=== PATIENT | male | born 1995 | race Caucasian/White ===

== ENCOUNTER 2021-11-19 15:16 | Emergency (ER) | payer OTHER ==
[~2021-11-19] VITALS: Ht 177.8 cm; Wt 77.1 kg
[2021-11-19 16:14] VITALS: BP 108/64
[2021-11-19] MEDS ORDERED: ACET-8386 PO (17:19)
[2021-11-19] MEDS ORDERED: HYDROcodone/APAP 5/325 MG 1 TAB TAB PO ONE (17:25)
[2021-11-19 18:01] VITALS: BP 112/69
--- NOTE | 2021-11-19 18:01 | NUR ---
Patient discharged with v/s stable. Written and verbal after care instructions given CLA[employer]CT[employer] and explained. Patient verbalized understanding. Ambulatory with steady gait. All questions addressed prior to discharge. Advised to follow up with PMD.
== END 2021-11-19 18:01 | disposition home or self-care (01) ==
LOC: MED 15:16
DX: S42.032A Displaced fracture of lateral end of left clavicle, initial encounter for closed fracture (principal); Z98.890 Other specified postprocedural states; W19.XXXA Unspecified fall, initial encounter; Y93.23 Activity, snow (alpine) (downhill) skiing, snowboarding, sledding, tobogganing and snow tubing; Y92.89 Other specified places as the place of occurrence of the external cause; Y99.8 Other external cause status
CPT/HCPCS: 73030; 99283